=== PATIENT | male | born 1945 | race Caucasian/White ===

== ENCOUNTER 2022-08-22 08:42 | Outpatient (CLI) | payer MEDICARE ==
[2022-08-22] MEDS ORDERED: diphenhydrAMINE 50 MG/ML VIAL ONE (09:26)
[2022-08-22] MEDS ORDERED: Iopamidol 300 61% 100 ML VIAL FS ONE (18:23)
== END 2022-08-22 08:43 | disposition home or self-care (01) ==
LOC: CSHCT 08:42
PROVIDERS: ATTEND Family Medicine
DX: K57.92 Diverticulitis of intestine, part unspecified, without perforation or abscess without bleeding (principal); K76.0 Fatty (change of) liver, not elsewhere classified; N28.1 Cyst of kidney, acquired; K57.30 Diverticulosis of large intestine without perforation or abscess without bleeding
CPT/HCPCS: 74177; J1200; Q9967

== ENCOUNTER 2023-05-21 07:41 | Outpatient (CLI) | payer MEDICARE | END 2023-05-21 07:42 | disposition home or self-care (01) | LOC: CSHCT 07:41 | PROVIDERS: ATTEND Family Medicine | DX: R10.9 Unspecified abdominal pain (principal) | CPT/HCPCS: 74176 ==

== ENCOUNTER 2023-08-11 20:49 | Observation (INO) | payer MEDICARE ==
[2023-08-11] MEDS ORDERED: Dextrose 50% Abboject 50 ML SYRINGE SLOW IVP PRN (21:15)
[2023-08-11] MEDS ORDERED: Guaifenesin DM 100-10/5 ML UDCUP PO PRN (21:15)
[2023-08-11] MEDS ORDERED: Nitroglycerin 0.4 MG TAB (25 Tab Bottle) SL PRN (21:15)
[2023-08-11] MEDS ORDERED: Senokot S 8.6-50 MG TAB PO PRN (21:15)
[2023-08-11] MEDS ORDERED: Glucagon 1 MG/ML KIT IM PRN (21:15)
[2023-08-11] MEDS ORDERED: Ondansetron PF 4 MG/2 ML Vial IVP PRN (21:15)
[2023-08-11] MEDS ORDERED: Calcium Carbonate 500 MG ChewTAB PO PRN (21:15)
[2023-08-11] MEDS ORDERED: Dextrose 5% in Water 1,000 ML IV PRN (21:15)
[2023-08-11] MEDS ORDERED: Zolpidem Tartrate 5 MG TAB PO PRN (21:15)
[2023-08-11 21:17] VITALS: BMI 28.8
[2023-08-11] MEDS ORDERED: Ipratropium/Albuterol 3 ML NEB NEB PRN (21:23)
[2023-08-11 22:07] LABS: CK (CPK) 103 U/L (30-200); CRP (Inflammatory) Less than 0.50 mg/dL (= or < 0.5)
[2023-08-11 22:15] LABS: Troponin I Less than 0.010 ng/mL (< 0.028)
[2023-08-11] MEDS: Lidocaine 4% Patch TD SCH (22:16)
[2023-08-11] MEDS: Acetaminophen 325 MG TAB PO PRN (22:19)
[2023-08-11] MEDS: Atorvastatin Calcium 40 MG TAB PO SCH (22:20)
[2023-08-11] MEDS: Lactated Ringer's 500 ML IV SCH ×2 (22:37→22:38)
[2023-08-11] MEDS: Nitroglycerin 2% Ointment 1 INCH/1 GM Packet TOP SCH (22:47)
[2023-08-12 00:02] LABS: Bilirubin Neg (Negative); Blood, Urine Negative (Negative); Clarity Clear (Clear); Glucose, Urine (Dipstick) Normal (Negative); Ketone, Urine Negative (Negative); Leukocyte Negative (Negative); Nitrite Negative (Negative); Protein, Urine (Dipstick) Negative (Neg-Trace); Specific Gravity, Urine 1.015 (1.005-1.030); Urobilinogen Normal mg/dL (Less than 2); pH, Urine 6.5 (5.0-9.0)
[2023-08-12 00:32] LABS: Bacteria/HPF None Seen HPF (None Seen); RBC/HPF 0-3 HPF (0-3); Squamous Epithelial 0-3 HPF (0-3); WBC/HPF 0-3 HPF (0-3)
[2023-08-12 06:02] LABS: Anion Gap 13 mmol/L (10-20); BUN (Urea Nitrogen) 23 mg/dL (8.4-25.7); Calc. Creatinine Clearance 86 mL/min (70-130); Calcium 8.9 mg/dL (7.8-10.44); Carbon Dioxide 23 mmol/L (23-31); Cardiac Risk 2.9 (Less than 4.5); Chloride 108 mmol/L (98-107); Cholesterol 100 mg/dl (< 200 Desired); Estimated GFR 77; Glucose 97 mg/dL (83-110); HDL Cholesterol 35 mg/dL (>60 Neg Risk); LDL Cholesterol, Calculated 45 mg/dL; Potassium 4.2 mmol/L (3.5-5.1); Sodium 140 mmol/L (136-145); Triglycerides 98 mg/dL (Less than 150)
[2023-08-12 06:09] LABS: Troponin I Less than 0.010 ng/mL (< 0.028)
[2023-08-12] MEDS: Mometasone/Formoterol 200/5 60 PUFF INH SCH (07:30)
[2023-08-12] MEDS ORDERED: Lantus 1000 UNITS/10 ML VIAL SC SCH (09:00)
[2023-08-12] MEDS: Tamsulosin HCl 0.4 MG CAP PO SCH (09:32)
[2023-08-12] MEDS: Isosorbide Mononitrate 30 MG ER.TAB PO SCH (09:32)
[2023-08-12] MEDS: Multivitamin W/ Minerals 1 TAB PO SCH (09:32)
[2023-08-12] MEDS: Clopidogrel Bisulfate 75 MG TAB PO SCH (09:32)
[2023-08-12] MEDS: Cholecalciferol 1,000 UNITS (25 MCG) TAB PO SCH (09:32)
[2023-08-12] MEDS: Transdermal Patch Removal TOP SCH (09:33)
[2023-08-12] MEDS ORDERED: Labetalol HCl 100 MG/20 ML VIAL SLOW IVP PRN (13:55)
[2023-08-12] MEDS ORDERED: hydrALAZINE 20 MG/ML VIAL SLOW IVP PRN (13:55)
[2023-08-12] MEDS: Lisinopril 20 MG TAB PO SCH (14:09)
[2023-08-12] MEDS: Verapamil 120 MG SR.TAB PO SCH (14:10)
[2023-08-12] MEDS: HumaLOG 300 UNITS/3 ML VIAL SC PRN (17:54)
[2023-08-12] MEDS: Atorvastatin Calcium 40 MG TAB PO SCH (20:29)
[2023-08-12] MEDS: Loratadine 10 MG TAB PO SCH (20:29)
[2023-08-12] MEDS: Montelukast Sodium 10 mg Tablet PO SCH (20:29)
[2023-08-12] MEDS: predniSONE 20 MG TAB PO SCH (20:29)
[2023-08-12] MEDS: Calcium Gluconate 4.6 MEQ in Sodium Chloride 0.9% 100 ML IVPB SCH (20:30)
[2023-08-12] MEDS ORDERED: Enoxaparin 40 MG (0.4 mL) SYRINGE SC SCH (21:00)
[2023-08-13] MEDS: predniSONE 20 MG TAB PO SCH (05:57)
[2023-08-13] MEDS: diphenhydrAMINE 25 MG CAP PO SCH (05:57)
[2023-08-13] MEDS: Lisinopril 20 MG TAB PO SCH (05:58)
[2023-08-13] MEDS ORDERED: Nitroglycerin 50 MG/250 ML BOT 0 ML ONE (06:32)
[2023-08-13] MEDS ORDERED: Bivalirudin 250 MG VIAL ONE (06:33)
[2023-08-13] MEDS ORDERED: Lidocaine 1% (PF) 30 ML VIAL ONE (06:33)
[2023-08-13] MEDS ORDERED: Midazolam HCl 2 mg/2 ml Vial ONE (06:33)
[2023-08-13] MEDS ORDERED: fentaNYL 50 mcg/mL 1 mL Vial ONE (06:33)
[2023-08-13 06:57] LABS: #Monocytes 0.1 10x3/uL (0.0-1.1); #Neutrophils 5.4 10x3/uL (1.5-8.4); %Basophils 0.2 % (0.0-2.0); %Lymphocytes 12.7 % (18.0-47.0); %Monocytes 1.1 % (0.0-10.0); %Neutrophils 85.8 % (40.0-75.0); Hematocrit 41.3 % (38.8-50.0); Hemoglobin 14.3 g/dL (13.5-17.5); Mean Corpuscular HGB CONC 34.6 g/dL (32.0-36.0); Mean Corpuscular Hemoglobin 32.5 pg (27.0-33.0); Mean Corpuscular Volume 93.9 fl (81.2-95.1); Mean Platelet Volume 9.3 fl (7.4-10.4); Platelet Count 228 10x3/uL (150-450); RBC Distribution Width 12.4 % (11.5-14.5); White Blood Cell (WBC) Count 6.3 10x3/uL (3.5-10.5)
[2023-08-13 07:05] LABS: PTT 27.6 sec (22.0-33.0); Prothrombin Time 10.7 sec (9.5-12.1)
[2023-08-13] MEDS ORDERED: Atropine Sulfate 1 mg/1 ml Vial ONE (07:59)
[2023-08-13] MEDS ORDERED: Metoprolol Tartrate 5 MG (5 mL) VIAL ONE (08:01)
[2023-08-13] MEDS ORDERED: Acetaminophen 325 MG TAB PO PRN (08:53)
[2023-08-13] MEDS ORDERED: Nitroglycerin 0.4 MG TAB (25 Tab Bottle) SL PRN (08:53)
[2023-08-13] MEDS ORDERED: Sodium Chloride 0.9% 200 ML IV PRN (08:53)
[2023-08-13] MEDS ORDERED: hydrALAZINE 20 MG/ML VIAL ONE (08:54)
[2023-08-13] MEDS ORDERED: Verapamil 120 MG SR.TAB PO SCH (09:00)
[2023-08-13] MEDS: Amlodipine 10 MG TAB PO SCH (11:01)
[2023-08-13] MEDS: Tamsulosin HCl 0.4 MG CAP PO SCH (11:02)
[2023-08-13] MEDS: Isosorbide Mononitrate 30 MG ER.TAB PO SCH (11:03)
[2023-08-13 12:50] VITALS: BP 156/70; TEMP 98.2
[2023-08-14] MEDS ORDERED: Isosorbide Mononitrate 60 MG ER.TAB PO SCH (09:00)
== END 2023-08-13 19:22 | disposition home or self-care (01) ==
LOC: CSHTELE 20:49
PROVIDERS: ADMIT Family Medicine; ATTEND Family Medicine
PROC: 4A023N7 Measurement of Cardiac Sampling and Pressure, Left Heart, Percutaneous Approach (ICD-10-PCS; principal; 2023-08-13)
PROC: B200YZZ Plain Radiography of Single Coronary Artery using Other Contrast (ICD-10-PCS; 2023-08-13)
DX: I25.10 Atherosclerotic heart disease of native coronary artery without angina pectoris (principal); R07.89 Other chest pain; I16.0 Hypertensive urgency; I10 Essential (primary) hypertension; E78.5 Hyperlipidemia, unspecified; E11.9 Type 2 diabetes mellitus without complications; M19.90 Unspecified osteoarthritis, unspecified site; K21.9 Gastro-esophageal reflux disease without esophagitis; J45.909 Unspecified asthma, uncomplicated; M25.519 Pain in unspecified shoulder; R53.83 Other fatigue; D64.9 Anemia, unspecified; M54.9 Dorsalgia, unspecified; R79.89 Other specified abnormal findings of blood chemistry; Z95.1 Presence of aortocoronary bypass graft; Z88.8 Allergy status to other drugs, medicaments and biological substances; Z88.5 Allergy status to narcotic agent; Z88.0 Allergy status to penicillin; Z88.1 Allergy status to other antibiotic agents; Z79.85 Long-term (current) use of injectable non-insulin antidiabetic drugs; Z79.02 Long term (current) use of antithrombotics/antiplatelets; Z87.891 Personal history of nicotine dependence; Z90.49 Acquired absence of other specified parts of digestive tract; Z88.2 Allergy status to sulfonamides
CPT/HCPCS: 80048; 80061; 81001; 82550; 82962 ×3; 83690; 84484 ×2; 85025; 85610; 85730; 86140; 93005; 93306; 93459; 94640; C1769 ×3; C1887; C1894; J0360; J0612; J3010; 36415; 36416; 93010; 96374; 99152; 99153; G0378; G0379; J0461; J0583; J1815; J2001; J2250; J3490; J7120; J7512